=== PATIENT | female | born 1960 | race Caucasian/White ===

== ENCOUNTER 2023-12-30 16:13 | Emergency (ER) | payer OTHER, MEDICARE ==
[2023-12-30 16:29] VITALS: BMI 23.3
[2023-12-30] MEDS ORDERED: ACETAMINOPHEN INJECTION 100 ML IVPB ONE (16:51)
[2023-12-30] MEDS ORDERED: ONDANSETRON 4 MG/2 ML VIAL ONE (16:51)
[2023-12-30] MEDS ORDERED: FAMOTIDINE 20 MG/50 ML IVPB 20 MG/50 ML MG IVPB ONE (16:51)
[2023-12-30] MEDS: SODIUM CHLORIDE 1,000 ML IV ONE (17:00)
[2023-12-30] MEDS: ONDANSETRON 4 MG/2 ML VIAL IVPUSH ONE (17:00)
[2023-12-30] MEDS: FAMOTIDINE 20 MG/50 ML IVPB 20 MG in PREMIX 50 IVPB ONE (17:05)
[2023-12-30] MEDS: ACETAMINOPHEN 1000 MG/100 ML BAG IVPB ONE (17:10)
[2023-12-30 17:25] LABS: HEMATOCRIT 49.4 % (32.4-45.2); HEMOGLOBIN 15.9 G/dL (10.7-15.3); MCH 29.8 pg (25.7-33.7); MCHC 32.1 g/dl (32.0-36.0); MEAN CELL VOLUME 92.7 fl (80-96); MEAN PLT VOLUME 7.9 fl (7.5-11.1); PLATELET COUNT 332.2 10^3/uL (134-434); RBC 5.33 10^6/uL (3.60-5.2); RDW 14.3 % (11.6-15.6); WHITE BLOOD COUNT 11.3 10^3/uL (4.0-10.8)
[2023-12-30 17:36] LABS: ALBUMIN 4.6 g/dl (3.4-5.0); ALK PHOS 97 U/L (45-117); ANION GAP 10 mmol/L (4-13); BILIRUBIN,TOTAL 0.6 mg/dl (0.2-1); CALCIUM 9.5 mg/dl (8.5-10.1); CHLORIDE 106 mmol/L (98-107); CO2 25 mmol/L (21-32); CREATININE 0.8 mg/dl (0.6-1.3); GLUCOSE,RANDOM 129 mg/dl (74-106); POTASSIUM 3.8 mmol/L (3.5-5.1); SGOT/AST 25 U/L (15-37); SGPT/ALT 31 U/L (7-52); SODIUM 141 mmol/L (136-145); TOT PROT 7.2 g/dl (6.4-8.2)
[2023-12-30] MEDS: SODIUM CHLORIDE 500 ML IV STA (18:46)
[2023-12-30] MEDS ORDERED: METOCLOPRAMIDE HCL INJECTION 10 MG/2 ML VIAL ONE (19:05)
[2023-12-30] MEDS: METOCLOPRAMIDE HCL INJECTION 10 MG/2 ML VIAL IVPUSH ONE (19:10)
[2023-12-30 20:55] LABS: PLATELET ESTIMATE ADEQUATE
[2023-12-30 21:12] VITALS: BP 129/75; PULSE 98; RESP 16; TEMP 98
== END 2023-12-30 21:15 | disposition home or self-care (01) ==
LOC: FER 16:13
PROC: 3E033GC Introduction of Other Therapeutic Substance into Peripheral Vein, Percutaneous Approach (ICD-10-PCS; principal; 2023-12-30)
PROC: 3E030NZ Introduction of Analgesics, Hypnotics, Sedatives into Peripheral Vein, Open Approach (ICD-10-PCS; 2023-12-30)
PROC: 3E030GC Introduction of Other Therapeutic Substance into Peripheral Vein, Open Approach (ICD-10-PCS; 2023-12-30)
PROC: 3E030GC Introduction of Other Therapeutic Substance into Peripheral Vein, Open Approach (ICD-10-PCS; 2023-12-30)
PROC: 3E0337Z Introduction of Electrolytic and Water Balance Substance into Peripheral Vein, Percutaneous Approach (ICD-10-PCS; 2023-12-30)
DX: R10.9 Unspecified abdominal pain (principal); R11.2 Nausea with vomiting, unspecified; M79.10 Myalgia, unspecified site; R53.1 Weakness; K52.9 Noninfective gastroenteritis and colitis, unspecified; Z20.822 Contact with and (suspected) exposure to COVID-19
CPT/HCPCS: 0241U-QW; 36415; 80053; 83690; 84484; 85027; 93005; 96361; 96365; 96375; 99284-25; J0131